=== PATIENT | male | born 1970 | race Caucasian/White ===

== ENCOUNTER 2016-11-01 07:29 | Day surgery (SDC) | payer BC ==
[2016-10-29 09:51] LABS: HEMATOCRIT 43.2 % (42.0-54.0); HEMOGLOBIN 14.4 g/dL (13.5-17.5); MCHC 33.3 g/dL (31.0-37.0); MCV 87.1 fL (80.0-100.0); MEAN PLATELET VOLUME 8.6 fL (7.4-10.4); RBC 4.96 10x6/uL (4.20-6.10); WBC 15.4 10x3/uL (4.8-10.8)
[~2016-11-01] VITALS: Ht 182.9 cm; Wt 115.7 kg
[~2016-11-01 07:29] MED LIST: CLARITIN 10 MG10 MG PO; LOSARTAN POTASS25 MG PO
[2016-11-01 10:36] VITALS: Ht 182.9 cm; Wt 115.7 kg
[2016-11-01] MEDS ORDERED: HYDROCODONE-APA1 TAB PO (13:33)
--- NOTE | 2016-11-01 14:45 | NUR ---
DISCHARGE INSTRUCTIONS REVIEWED WITH PATIENT, RIGHT FOREARM PIV DC'D WITH TIP INTACT, PATIENT DRESSED IN PERSONAL CLOTHING. DISCHARGED HOME VIA WHEELCHAIR TO PRIVATE VEHICLE WITH FRIEND
--- NOTE | 2016-11-01 20:09 | OP ---
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 PROCEDURE: De Quervain release, left wrist. SURGEON: José Luis Rodriguez MD. ANESTHESIA: General. INTRAOPERATIVE COMPLICATIONS: None. SUMMARY OF PATHOLOGIC FINDINGS: The patient has a very tight De Quervain stenosing tenosynovitis with substantial amounts of synovitis seen consistent with ____. OPERATIVE SUMMARY IN DETAIL: After obtaining the appropriate preoperative orthopedic surgery consent as well as anesthetic consultation, evaluation and clearance, the patient was brought to the operating room and placed on the operating table in supine position. After adequate TIVA anesthesia was administered, tourniquet was placed on the proximal aspect of the left upper extremity. The left upper extremity was prepped and draped in routine sterile fashion. The arm was elevated and exsanguinated, tourniquet inflated to 350 mmHg. A small incision was made over the distal aspect of the radius on the medial aspect. This was taken down gently past the radial nerve and the extensor compartment was identified and gently incised. It was very thickened and very tight; however, once it was released, synovitis was found both proximally and distally. This was excised. The wound was then irrigated and closed with 4-0 Prolene in running fashion. The area was locally infiltrated with 0.25% Marcaine and lidocaine both before and after the operation. Having completed this, sterile dressings were applied. Tourniquet was deflated. The patient was awakened and taken to the recovery room in stable condition. All final needle and sponge counts were correct. TRANSINT:[id number] Voice Confirmation ID: [id number] DOCUMENT ID: [id number] JOSÉ LUIS RODRIGUEZ MD at 2008 CC: [id number] DICTATION DATE: 11/01/16 1336 NURSE STAFF INDUSTRIAL: 11/01/16 1855 [facility] 11/01/16 [place] [address]
== END 2016-11-01 14:45 | disposition home or self-care (01) ==
LOC: D.OPS 07:29 → D.PAN 14:15 → D.OPS 14:15
PROVIDERS: Anesthesiology
DX: M65.4 Radial styloid tenosynovitis [de Quervain] (principal); F17.200 Nicotine dependence, unspecified, uncomplicated; I10 Essential (primary) hypertension; J44.9 Chronic obstructive pulmonary disease, unspecified

== ENCOUNTER → 2018-11-21 14:43 | Outpatient (CLI) | payer OTHER ==
[2016-11-01 10:36] VITALS: BMI 34.6
[~2018-11-21 14:43] MED LIST changes: +HYDROCODONE-APA1 TAB PO
== END | disposition home or self-care (01) ==
LOC: D.LAB 14:43
PROVIDERS: ATTEND Internal Medicine Gastroenterology
DX: K63.5 Polyp of colon (principal)

== ENCOUNTER 2018-12-26 09:42 | Day surgery (SDC) | payer OTHER ==
[2018-12-26 10:12] LABS: HEMATOCRIT 45.9 % (42.0-54.0); HEMOGLOBIN 15.5 g/dL (13.5-17.5); MCH 29.1 pg (26.0-34.0); MCHC 33.8 g/dL (31.0-37.0); MCV 86.3 fL (80.0-100.0); MEAN PLATELET VOLUME 8.7 fL (7.4-10.4); RBC 5.32 10x6/uL (4.20-6.10); RDW 13.4 % (11.5-14.5); WBC 10.1 10x3/uL (4.8-10.8)
[2018-12-26] MEDS ORDERED: COZAAR100 MG PO (11:36)
[2018-12-26] MEDS ORDERED: PROBIOTIC BLEN1 EACH (11:37)
[2018-12-26] MEDS ORDERED: BYSTOLIC2.5 MG PO (11:37)
[2018-12-26 11:51] VITALS: BP 135/84; BMI 35.3
--- NOTE | 2018-12-26 16:15 | NUR ---
PT DC INSTRUCTIONS REVEIWED AT THIS TIME, PT VERBALIZES UNDERSTANDING AND AGREES. PT IV REMOVED AT THIS TIME, INTACT, NO REDNESS OR SWELLING NOTED AT SITE.
--- NOTE | 2018-12-26 16:25 | NUR ---
PT LEAVING OPS SURGERY AT THIS TIME VIA WC.
--- NOTE | 2018-12-26 17:36 | OP ---
PATIENT NAME: JIMMY DESOUZA MEDICAL RECORD: [id number] :72 LOCATION:D.[facility] ADMISSION DATE: SURGEON: BRANDI ABDI MD DATE OF OPERATION: 12/26/2018 PREOPERATIVE DIAGNOSIS: Huge rectal polyp, 8 cm. POSTOPERATIVE DIAGNOSES: 1. Huge rectal polyp, probably about 10 cm in length, pedunculated. 2. Secondary sessile polyp, 8 mm. PROCEDURES: 1. Total colonoscopy to the cecum. 2. Snare polypectomy of the rectal polyp with deployment of 4 endoscopic clips as well as 2 Poly-Loops for hemostasis. 3. Hot biopsy forceps polypectomy times 1. SURGEON: Brandi Abdi MD INSTALL AND REPAIR TECHNICIAN: None. BLOOD LOSS: Minimal. ANESTHESIA: IV sedation. COMPLICATIONS: None. The risks, possible complications, and alternatives to the procedure were explained to the patient. He elects to proceed. ENDOSCOPIC COURSE: The patient was conveyed to the endoscopy suite electively on 12/26/2018. IV sedation was induced by the anesthesia staff. The patient was placed in the Ryan position. A digital rectal examination was performed. The prostate was symmetric and without nodules. A colonoscope was inserted through the anus. It was easily advanced to the cecum. The prep was adequate. I slowly withdrew the endoscope. I irrigated and aspirated extensively. One polyp was removed utilizing hot biopsy forceps polypectomy technique. I advanced a sclerotherapy needle. At the base of the polyp, I performed a submucosal injection of epinephrine for postprocedural hemostasis. I then tried to place a Poly-Loop around the base of this very large polyp in the rectum. However, the Poly-Loop was not large enough to get around this huge polyp. Instead, I placed 4 endoscopic clips at 4 corners at the base of the polyp for hemostasis. We took the snare and even the largest snare would not fit over the polyp. A piecemeal snare polypectomy was performed. The entire polyp was removed. We then took 2 Poly-Loops and placed them at the polypoid base. This gathered up the clips. I then unretroflexed the scope and removed under direct vision. I will see the patient in my office in 1-2 weeks. TRANSINT:[id number] Voice Confirmation ID: [id number] DOCUMENT ID: [id number] OPERATIVE REPORT [id number] JIMMY DESOUZA BRANDI ABDI MD at 1736 CC: CHACORTA STEELE MD and WES EWING [id number] DICTATION DATE: 12/26/18 1540 [employer] DE[employer]MENT: 12/26/18 1734 [facility] 12/26/18 [facility] [address] [id number]
== END 2018-12-26 14:15 | disposition home or self-care (01) ==
LOC: D.OPS 09:42
PROVIDERS: Anesthesiology; ATTEND Surgery
DX: K62.1 Rectal polyp (principal); K63.5 Polyp of colon; Z01.812 Encounter for preprocedural laboratory examination

== ENCOUNTER 2020-02-26 05:42 | Day surgery (SDC) | payer OTHER ==
[~2020-02-26] VITALS: Ht 182.9 cm; Wt 127.3 kg
--- NOTE | ~2020-02-26 | HP ---
PATIENT: JIMMY DESOUZA MEDICAL RECORD: [id number] ACCOUNT: [id number] LOCATION:[facility] : 72 ADMISSION DATE: 02/26/20 PCP: CHACORTA STEELE MD HISTORY AND PHYSICAL EXAMINATION CHIEF COMPLAINT: Rectal polyp. HISTORY OF PRESENT ILLNESS: The patient underwent a colonoscopy last year. He had a very worrisome polyp in the rectum. 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 The disrupted stalk appeared to be free of dysplasia. He has had no abdominal pain. No rectal bleeding. I really describe the polyp as huge. Clips as well as 2 poly loops were utilized. The polyp was 10 cm from the anus. PAST MEDICAL AND SURGICAL HISTORY: Questionable COPD, questionable sleep apnea, hypertension. Exploratory laparotomy and lumbar laminectomy. ALLERGIES: No known drug allergies. HOME MEDICINES: Losartan, Bystolic, as well as Valium. REVIEW OF SYSTEMS: Negative for CVA or seizures. Negative for diabetes or thyroid problems. PHYSICAL EXAMINATION: GENERAL: The patient does not appear acutely ill. He does not appear chronically ill. VITAL SIGNS: Reviewed. EARS: External ears appear normal. EYES: Extraocular movements are intact. NECK: Trachea is midline. CHEST: No intercostal retractions. PULMONARY: Nonlabored and no stridor. IMPRESSION: History of a rectal polyp with low-grade atypia as well as a focus of high-grade dysplasia. PLAN: Colonoscopy and possible polypectomy. TRANSINT:[id number] Voice Confirmation ID: [id number] DOCUMENT ID: [id number] HISTORY AND PHYSICAL [id number] JIMMY DESOUZA BRANDI BADI MD CC: CHACORTA STEELE MD [id number] DICTATION DATE: 02/26/20 1119 PATCH DRILLER: 02/26/20 [id number] [place] [address]
--- NOTE | ~2020-02-26 | OP ---
PATIENT NAME: JIMMY DESOUZA MEDICAL RECORD: [id number] :72 LOCATION:D.OPS ADMISSION DATE: SURGEON: BRANDI ABDI MD DATE OF OPERATION: 02/26/2020 PREOPERATIVE DIAGNOSIS: History of a rectal polyp at 10 cm with low-grade atypia as well as high-grade atypia. POSTOPERATIVE DIAGNOSIS: History of a rectal polyp at 10 cm with low-grade atypia as well as high-grade atypia with regrowth of a polyp, which is now a carpeting sessile type polyp. PROCEDURES: 1. Total colonoscopy to cecum. 2. Polypectomy utilizing argon plasma vp information technology. SURGEON: Brandi Abdi MD MICA PARTS SPRAYER: None. BLOOD LOSS: Minimal. ANESTHESIA: IV sedation. COMPLICATIONS: None. The risks, possible complications, and alternatives to the procedure were explained to the patient. He elects to proceed. Discussion specifically included, but was not limited to, bleeding requiring emergency reoperation, infection, as well as possible need for additional endoscopic procedure or procedures. ENDOSCOPIC COURSE: The patient was conveyed to endoscopy suite electively on 02/26/2020. IV sedation was induced by the anesthesia staff. The patient was placed in the Ryan position. A digital rectal examination was performed. It revealed a prostate that was symmetric and without nodules. A colonoscope was inserted through the anus. It was easily advanced to the cecum. The prep was adequate. I slowly withdrew the endoscope. I irrigated and aspirated extensively. In the rectum, retroflexed views were obtained. I also examined the polyp with the narrow band imaging. Multiple cold biopsies were obtained of the polyp. I then ablated any residual polypoid tissue with the argon plasma vp information technology utilizing the right colon setting in the forced mode. I then un-retroflexed the scope and removed it under direct vision. The patient is going to be dismissed home on Flagyl. I will see him in the office in 2-3 weeks. I will plan for his next colonoscopy to take place in 2 years. TRANSINT:[id number] Voice Confirmation ID: [id number] DOCUMENT ID: [id number] OPERATIVE REPORT [id number] JOSE L DESOUZAON Kiana BRANDI ABDI MD CC: CHACORTA STEELE MD [id number] DICTATION DATE: 02/26/20 1224 NEWS PHOTOGRAPHER: 02/26/202151 [facility] 02/26/20 [facility] [address] [facility] [place] [address]
[~2020-02-26 05:42] MED LIST changes: +BYSTOLIC2.5 MG PO; +COZAAR100 MG PO; +PROBIOTIC BLEN1 EACH
[2020-02-26] MEDS ORDERED: FISH OIL 1,0001 CA1 (06:51)
[2020-02-26] MEDS ORDERED: VITAMIN C 500500 MG (06:52)
[2020-02-26] MEDS ORDERED: VALIUM5 MG PO (06:53)
[2020-02-26 07:08] VITALS: BP 102/76; Ht 182.9 cm; Wt 127.3 kg
--- NOTE | 2020-02-26 12:36 | NUR ---
1235 IV DC'D. CATHETER TIP INTACT. NO BLEEDING AT SITE. BANDAID APPLIED.
--- NOTE | 2020-02-26 12:39 | NUR ---
1240 DISCHARGE INSTRUCTIONS HAVE BEEN REVIEWED WITH PT WHO VOICES UNDERSTANDING OF INSTRUCTIONS AND FOLLOWUP APPOINTMENT TIME WITH DR ABDI
--- NOTE | 2020-02-26 13:09 | NUR ---
1252 PT STATES THAT HIS B/P TYPICALLY RUNS IN THE 130/80 RANGE AT HOME. HE STATES HE WILL MONITOR B/P AT HOME AND NOTIFY HIS PCP IF IT DOES NOT RETURN TO HIS NORMAL READINGS. PT EXPRESSES DESIRE TO GO HOME AND GET SOMETHING TO EAT. HE SAYS HE IS EXPERIENCING A LITTLE PAIN IN THE RECTAL AREA BUT IT IS MILD. PT VERBALIZES THAT HE WILL MEDICATE WITH TYLENOL IF DISCOMFORT INCREASES.
== END 2020-02-26 12:57 | disposition home or self-care (01) ==
LOC: D.OPS 05:42
PROVIDERS: ATTEND Surgery
DX: Z87.19 Personal history of other diseases of the digestive system (principal); K62.1 Rectal polyp; F17.200 Nicotine dependence, unspecified, uncomplicated; Q55.29 Other congenital malformations of testis and scrotum